=== PATIENT | male | born 1990 | race Caucasian/White ===

== ENCOUNTER 2024-01-18 06:30 | Outpatient (CLI) | payer OTHER, SELFPAY | END 2024-01-18 06:31 | disposition home or self-care (01) | LOC: NFLDREF 01-23 07:14 | PROVIDERS: PCP Family Medicine; Referring Provider Family Medicine; Visit Provider Obstetrics & Gynecology | DX: Z31.41 Encounter for fertility testing (principal) | CPT/HCPCS: 89322 ==